=== PATIENT | female | born 1985 | race Caucasian/White ===

== ENCOUNTER → 2019-02-20 09:56 | Outpatient (BNVA) | payer BC, SELFPAY | PROVIDERS: Family Provider Nurse Practitioner; PCP Nurse Practitioner; Visit Provider Nurse Practitioner | DX: Z20.2 Contact with and (suspected) exposure to infections with a predominantly sexual mode of transmission (principal) | CPT/HCPCS: 87491; 87591; 87661 ==

== ENCOUNTER 2019-02-24 15:39 | Emergency (ER) | payer BC, SELFPAY ==
[2019-02-24 16:04] VITALS: BP 117/86; PULSE 100; RESP 17; TEMP 36.7; O2SAT 100; BMI 28.0
--- NOTE | 2019-02-24 16:29 | XRR_ITS ---
PROCEDURE INFORMATION: Exam: XR Left Ankle Exam date and time: 02/24/2019 4:59 PM Age: 33 years old Clinical indication: Pain and injury or trauma; Injury history: Bucked from horse and landed on left ankle, lateral pain; Initial encounter; Sprain or strain; Injury date: 02/23/19 TECHNIQUE: Imaging protocol: XR Left ankle. Views: 3 or more views. COMPARISON: No relevant prior studies available. FINDINGS: Bones/joints: Negative for acute bone abnormality Soft tissues: Normal. XR/XR ankle LT min 3V* [id number] IMPRESSION: No acute findings.
--- NOTE | 2019-02-24 16:41 | ED_ITS ---
HPI - Extremity Problem General: Chief complaint: Extremity Injury, Lower Stated complaint: left ankle pain Time Seen by Provider: 02/24/19 16:41 Source: patient Mode of arrival: ambulatory Limitations: no limitations History of Present Illness: HPI Narrative: pt fell off horse and then horse stepped on foot/ankle; has ambulated since event but states she cannot bear full weight Complaint: joint paint Onset (ago): day(s) Pain Consistency: constant Location: left Quality: burning and constant Radiation: proximal Exacerbating factors: range of motion and weight bearing Associated symptoms: Reports no associated symptoms Review of Systems Musc: Reports: extremity pain (L foot) and joint pain (L ankle) PFSH ED PFSH: Statuses (acute, chronic, etc) shown below reflect problem list status as previously entered and may not be historically accurate Medical History (Updated 02/24/19 @ 17:03 by DONAVON Perera) Endometriosis (Acute) Protein S deficiency (Acute) Surgical History (Updated 02/20/19 @ 11:05 by KACEY Hernandez) H/O: hysterectomy (Acute) Hx of tonsillectomy (Acute) Family History (Updated 02/19/19 @ 10:34 by Nichelle Pace LPN) Unknown Cancer Social History (Updated 02/19/19 @ 10:37 by Nichelle Pace LPN) Smoking and tobacco status: current every day smoker cigarettes Alcohol intake: current Physical Exam Const: COMMON NORMALS: no apparent distress, average body habitus, oriented x3, healthy appearing, alert and well nourished Extremity: LEFT LOWER EXTREMITY: Yes ankle joint (dec ROM; ecchymosis, tenderness to medial ankle/foot; NV intact ) Neuro: COMMON NORMALS: oriented x3 SENSORIUM/ORIENTATION: Yes alert Course Vital Signs: Vital signs: Vital Signs Temperature 98.0 F 02/24/19 16:04 Pulse Rate 100 02/24/19 16:04 Respiratory Rate 17 02/24/19 16:04 Blood Pressure 117/86 02/24/19 16:04 Pulse Oximetry 100 02/24/19 16:04 MDM - Extremity (Nontraumatic) Imaging Data^: L ankle: My impression: NAD Radiologist's impression: NAD Discharge Plan Discharge Patient Disposition: Home, Self-Care Clinical Impression: Contusion of ankle, left Qualifiers: Encounter type: initial encounter Qualified Code(s): S90.02XA - Contusion of left ankle, initial encounter Contusion of foot, left Qualifiers: Encounter type: initial encounter Qualified Code(s): S90.32XA - Contusion of left foot, initial encounter Condition: Stable Prescriptions: No Action lamotrigine [Lamictal] 150 mg tablet 150 mg PO DAILY RF: 0 venlafaxine [Effexor XR] 150 mg capsule,extended release 24hr 150 mg PO QAM RF: 0 pantoprazole [Protonix] 40 mg tablet,delayed release (DR/EC) 40 mg PO DAILY RF: 0 Discharge Orders: Discharge Order (Routine); Ordered 02/24/19 Ordered By: Lyn Noriega Referrals: Natalya Tomlin FNP [Primary Care Provider] - Discharge Activity: Increase activity as tolerated Activity Restrictions/Additional Instructions: Follow up with primary care in 1 week for continued pain. Coding Level of Care Code ED Certified Professional Midwife for Frank Monteiro Exam Problem Focused
--- NOTE | 2019-02-24 16:43 | XRR_ITS ---
PROCEDURE INFORMATION: Exam: XR Left Foot Complete Exam date and time: 02/24/2019 4:59 PM Age: 33 years old Clinical indication: Pain and injury or trauma; Injury history: Bucked from horse landed on ankle, lateral pain; Initial encounter; Sprain or strain; Ankle and foot; Left; Injury date: 02/23/19 TECHNIQUE: Imaging protocol: XR Left foot. Views: 3 or more views. COMPARISON: No relevant prior studies available. FINDINGS: Bones/joints: Negative for acute bone abnormality Soft tissues: Normal. XR/XR foot LT min 3V* [id number] IMPRESSION: No acute findings.
[2019-02-24 17:16] VITALS: BP 118/79; PULSE 91; RESP 18; O2SAT 100
== END 2019-02-24 17:18 | disposition home or self-care (01) ==
LOC: ER 02-25 00:17
PROVIDERS: Emergency Provider Emergency Medicine; Family Provider Nurse Practitioner; PCP Nurse Practitioner
DX: S90.02XA Contusion of left ankle, initial encounter (principal); S90.32XA Contusion of left foot, initial encounter; W55.19XA Other contact with horse, initial encounter; F17.210 Nicotine dependence, cigarettes, uncomplicated
CPT/HCPCS: 73610; 73630; 99281; 99283; E0114

== ENCOUNTER → 2019-03-25 10:10 | Outpatient (BNVA) | payer BC, SELFPAY | PROVIDERS: Family Provider Nurse Practitioner; PCP Nurse Practitioner; Visit Provider Nurse Practitioner | DX: J45.909 Unspecified asthma, uncomplicated (principal); J40 Bronchitis, not specified as acute or chronic; R05 Cough | CPT/HCPCS: 87804 ==

== ENCOUNTER → 2019-06-12 08:31 | Outpatient (BNVA) | payer BC, SELFPAY | PROVIDERS: Family Provider Nurse Practitioner; PCP Nurse Practitioner; Visit Provider Psychiatry & Neurology Psychiatry | DX: F43.12 Post-traumatic stress disorder, chronic (principal); F41.1 Generalized anxiety disorder; F33.2 Major depressive disorder, recurrent severe without psychotic features | CPT/HCPCS: 99204 ==

== ENCOUNTER 2019-06-18 10:56 | Emergency (ER) | payer BC, SELFPAY ==
[2019-06-18 10:57] VITALS: RESP 17
[2019-06-18 11:05] VITALS: BP 126/88; PULSE 97; RESP 16; TEMP 36.4; O2SAT 100; BMI 29.9
--- NOTE | 2019-06-18 11:18 | W.ED.FALL ---
HPI - Fall General: Chief Complaint: Fall Stated Complaint: LOST BALANCE/HIT HEAD Time Seen by Provider: 06/18/19 11:05 Source: patient Mode of arrival: ambulatory Limitations: no limitations History of Present Illness: HPI Narrative: Patient is a 34-year-old female who presents to ED today for evaluation following a fall from a horse that occurred 3 to 4 days ago. Patient states she was thrown from a horse and struck her head. She does report LOC for a few seconds. Patient tells me since the fall she has had a headache, blurry vision, trouble staying awake. She also complains of neck pain, upper back pain, right shoulder pain, right elbow pain, left ankle pain. Patient has been ambulatory and functioning since the fall. She has not had any nausea or vomiting. Patient does not complain of chest pain, shortness of breath, difficulty breathing. She does not have any abdominal pain. MD complaint: fall Onset (ago): day(s) Fall from: other (off horse) Fall witnessed: yes, by bystander Place fall occurred: home Loss of consciousness: Yes Length of LOC: second(s) Prolonged down time: no Symptoms prior to fall: none Context: other (thrown from horse) Location of injury: head, neck and back Location of injury - extremities: Left: ankle and Right: shoulder and elbow Associated symptoms-after fall: Reports headache(s) and neck pain; Denies abdominal pain, chest pain, difficulty walking, hematuria or lightheadedness Review of Systems Const: Denies: fever, chills, body aches, fatigue or malaise Eyes: Reports: blurry vision; Denies: blind spots, photophobia, eye discharge, floaters or seeing flashes ENMT: Denies: throat pain, enlarged tonsils or painful swallowing Card: Denies: chest pain, palpitations, irregular heart rhythm, edema, lightheadedness, syncope, pre-syncope, shortness of breath on exertion, shortness of breath when lying down, leg pain with exertion or bluish discoloration of hands/feet Resp: Denies: shortness of breath, productive cough, non-productive cough, pain on inspiration, coughing up blood or chest congestion GI: Denies: abdominal pain, nausea or vomiting : Denies: flank pain, difficulty urinating, painful urination, urinary frequency, urinary urgency or blood in urine Musc: Reports: neck pain, back pain, extremity pain and joint pain; Denies: extremity swelling, joint swelling or redness Neuro: Reports: headache; Denies: numbness in extremities, weakness in extremities, changes in sensation, lack of coordination, difficulty walking, dizziness, slurred speech or seizure-like activity PFS ED PFSH: Medical History (Updated 06/18/19 @ 12:35 by DONAVON Perera) Endometriosis Protein S deficiency Surgical History (Updated 02/20/19 @ 11:05 by KACEY Hernandez) H/O: hysterectomy Hx of tonsillectomy Family History (Updated 02/19/19 @ 10:34 by Nichelle Pace LPN) Unknown Cancer Social History Smoking and tobacco status: current every day smoker cigarettes Alcohol intake: current Physical Exam Const: COMMON NORMALS: no apparent distress, average body habitus, oriented x3, no limitations, healthy appearing, alert and well nourished ORIENTATION/CONSCIOUSNESS: Yes oriented to person, Yes oriented to place and Yes oriented to time HENMT: COMMON NORMALS: normocephalic, head/scalp atraumatic, hearing grossly normal bilaterally, external ears normal, EAC's normal, TM's normal bilaterally, external nose normal and oropharynx normal HEAD & SCALP: normal to inspection, normocephalic and atraumatic FACE & SINUS: normal facial exam and sinuses nontender NOSE: external nose normal EXTERNAL EAR: Yes external ears normal EXTERNAL AUDITORY CANAL: EAC's normal TYMPANIC MEMBRANE: TM's normal bilaterally Eye: COMMON NORMALS: PERRL, EOMs intact bilaterally and conjunctivae normal GENERAL EYE: normal appearance of both eyes and normal light reflex VISUAL ACUITY: Yes acuity normal PERIORBITAL: periorbital findings normal CONJUNCTIVA: Yes conjunctivae normal PUPIL: Yes PERRL DIRECT OPHTHALMOSCOPY: Yes normal light reflex Neck/C-Spine: OTHER: pt with c-collar on; she does complain of midline neck pain Chest: COMMONS NORMALS: inspection of chest normal and palpation of chest normal Resp: COMMON NORMALS: normal respiratory effort and clear to auscultation bilaterally AUSCULTATION: clear to auscultation bilaterally Cardio: COMMON NORMALS: regular rate and regular rhythm RATE: regular rate RHYTHM: regular rhythm GI: COMMON NORMALS: normal to inspection, nondistended, normoactive bowel sounds, soft to palpation, non-tender, no hepatosplenomegaly and no masses PALPATION: Yes soft and Yes no hepatosplenomegaly : COMMON NORMALS: Yes no CVA tenderness BLADDER/KIDNEY EXAM: Yes no CVA tenderness Back/Pelvis: COMMON NORMALS: no CVA tenderness and straight leg raise negative bilaterally THORACIC SPINE/UPPER BACK: Yes thoracic spinal tenderness (upper-mid thoracic spine; no step offs) LUMBAR SPINE/LOWER BACK: Yes normal to inspection, Yes lumbar ROM normal, No lumbar spinal tenderness and No paraspinal muscle tenderness Extremity: RIGHT UPPER EXTREMITY: Yes shoulder joint (TTP with aduction/flexion past 90 degrees) Right shoulder: Yes neurovascular exam (normal) and Yes elbow joint (bruising/abrasions noted; full but painful ROM) Right elbow: Yes neurovascular exam (normal) LEFT LOWER EXTREMITY: Yes ankle joint (bruising and tenderness to medial ankle; has been ambulatory since fall) Left ankle: Yes neurovascular exam (normal) Neuro: DAVIN COMA SCALE: document GCS findings Milroy coma scale eye opening: Spontaneous Davin coma scale verbal response: Orientated Davin coma scale motor response: Obey commands Milroy coma scale total score: 15 COMMON NORMALS: oriented x3, CN's II-XII intact bilaterally, moves all extremities, no focal motor deficits, no sensory deficits noted and gait normal SENSORIUM/ORIENTATION: Yes alert, Yes oriented to person, Yes oriented to place and Yes oriented to time COORDINATION/BALANCE: [id number] test normal SPEECH: speech normal GAIT: Yes normal gait COORDINATION: [id number] test normal Skin: COMMON NORMALS: no rashes or lesions noted (see extremity for noted abrasions ) GENERAL SKIN EXAM: no rashes or lesions noted (see extremity for noted abrasions ) Course Vital Signs: Vital signs: Vital Signs Temperature 97.6 F 06/18/19 11:05 Pulse Rate 97 06/18/19 11:05 Respiratory Rate 16 06/18/19 11:05 Blood Pressure 126/88 06/18/19 11:05 Pulse Oximetry 100 06/18/19 11:05 MDM - Fall MDM Narrative: Medical decision making narrative: pt with possible T3 fracture on her CT scan; she does have mild pain here so will go ahead and assume it is acute; will have her follow up with PCP in a week Imaging Data^: CT cervical: Radiologist's impression: [place] [address] CT Scan Report Signed Patient: Yani Coley Unit #: [id number] : 1985 Age/Sex: 34 / F ADM Date: 06/18/19 Loc: ER Room/Bed: Attending Dr: Ordering Provider/Ordering MD: Lyn Noriega Date of Service: 06/18/19 Procedure(s): CT cervical spin wo con* [id number] Accession Number(s): [id number] Report Number: [id number] WS: [id number] CT CERVICAL SPINE HISTORY: trauma TECHNIQUE: Contiguous 2.5 mm axial imaging performed through the entire cervical spine. Sagittal and coronal reformats also performed. All CT scans at [facility] use at least one of these dose optimization techniques: automated exposure control; mA and/or kV adjustment per patient size (includes targeted exams where dose is matched to clinical indication); or iterative reconstruction. DLP: 671.28 mGy.cm COMPARISON: None available. Mild straightening and reversal normal cervical lordosis is probably positional. Craniocervical junction is normal. Lateral masses of C1 and C2 are aligned. The odontoid is intact. Vertebral body heights are preserved. Facet joints are normally aligned. No acute disc herniations. No significant central stenosis. Lung apices are clear. CT/CT cervical spin wo con* [id number] IMPRESSION: 1. No acute cervical spine fracture. 2. Slight reversal of the normal cervical lordosis is probably positional or due to spasm. Dictated By: Amaris Urbina DO Signed By: Amaris Urbina DO Signed Date/Time: 06/18/19 1159 DD/ 1155 CT Head: Radiologist's impression: [address] [address] [address] Scan Report Signed Patient: Yani Coley Unit #: [id number] : 1985 Age/Sex: 34 / F ADM Date: 06/18/19 Loc: ER Room/Bed: Attending Dr: Ordering Provider/Ordering MD: Lyn Noriega Date of Service: 06/18/19 Procedure(s): CT head wo con* [id number] Accession Number(s): [id number] Report Number: [id number] WS: [id number] CT HEAD NONCONTRAST HISTORY: trauma; thrown from horse TECHNIQUE: Contiguous axial imaging performed through the brain in 2.5 mm imaging. Bone and soft tissue windows. Sagittal and coronal reformats reviewed. All CT scans at [facility] use at least one of these dose optimization techniques: automated exposure control; mA and/or kV adjustment per patient size (includes targeted exams where dose is matched to clinical indication); or iterative reconstruction. DLP: 864.2 mGy.cm COMPARISON: 03/12/2018 No acute intracranial hemorrhage, midline shift or mass effect. No atrophy or prior infarcts or herniation. Ventricles: Normal size with no hydrocephalus. Paranasal sinuses: As visualized are clear. Mastoid air cells: Well pneumatized. Calvarium and scalp: Skull is intact with no soft tissue edema or swelling. CT/CT head wo con* [id number] IMPRESSION: Negative head CT. Dictated By: Amaris Urbina DO Signed By: Amaris Urbina DO Signed Date/Time: 06/18/19 1202 DD/ 1159 CT thoracic: Radiologist's impression: [place] [address] CT Scan Report Signed Patient: Yani Coley Unit #: [id number] : 1985 Age/Sex: 34 / F ADM Date: 06/18/19 Loc: ER Room/Bed: Attending Dr: Ordering Provider/Ordering MD: Lyn Noriega Date of Service: 06/18/19 Procedure(s): CT thoracic spin wo con* [id number] Accession Number(s): [id number] Report Number: [id number] WS: [id number] CT THORACIC SPINE HISTORY: trauma TECHNIQUE: Contiguous 2.5 mm axial images are reviewed to thoracic spine. Images are reformatted in sagittal and coronal planes. All CT scans at [facility] use at least one of these dose optimization techniques: automated exposure control; mA and/or kV adjustment per patient size (includes targeted exams where dose is matched to clinical indication); or iterative reconstruction. DLP: 1487.19 mGy.cm COMPARISON: None available. Very minimal concave defect superior endplate of T3. Normal posterior alignment of the thoracic vertebral bodies. No retropulsion and facet joints are normally aligned. No acute disc herniations or compromise of the central canal. No significant stenosis. Paravertebral soft tissues are normal. CT/CT thoracic spin wo con* [id number] IMPRESSION: 1. Very mild concave defect involving the superior endplate of T3. Indeterminate for acute fracture. There is no retropulsion and no fracture line is identified. Age indeterminate. Correlate with point tenderness to the T3 level. 2. No disc herniations. Dictated By: Amaris Urbina DO Signed By: Amaris Urbina DO Signed Date/Time: 06/18/19 1208 DD/ 1203 R shoulder XR: Radiologist's impression: [address] [address] XRay Report Signed Patient: Yani Coley Unit #: [id number] : 1985 Age/Sex: 34 / F ADM Date: 06/18/19 Loc: ER Room/Bed: Attending Dr: Ordering Provider/Ordering MD: Lyn Noriega Date of Service: 06/18/19 Procedure(s): XR shoulder RT min 2V* [id number] Accession Number(s): [id number] Report Number: [id number] WS: [id number] RIGHT SHOULDER: 3 VIEW(S) TECHNIQUE: Internal and external rotation with Y view. HISTORY: trauma COMPARISON: None available. No fracture or dislocation or soft tissue abnormality. Glenohumeral and AC joints are unremarkable. XR/XR shoulder RT min 2V* [id number] IMPRESSION: Normal RIGHT shoulder. Dictated By: Amaris Urbina DO Signed By: Amaris Urbina DO Signed Date/Time: 06/18/19 1213 DD/ 1212 L ankle XR: Radiologist's impression: [address] [place] [address] XRay Report Signed Patient: Yani Coley Unit #: [id number] : 1985 Age/Sex: 34 / F ADM Date: 06/18/19 Loc: ER Room/Bed: Attending Dr: Ordering Provider/Ordering MD: Lyn Noriega Date of Service: 06/18/19 Procedure(s): XR ankle LT min 3V* [id number] Accession Number(s): [id number] Report Number: [id number] WS: [id number] LEFT ANKLE: 3 VIEW(S) TECHNIQUE: AP, oblique(s) and lateral. HISTORY: injury; thrown from horse COMPARISON: None available. Normal anatomic alignment with no fracture or dislocation. No joint effusion or widening of the ankle mortise. No significant degenerative changes at the joint spaces. No soft tissue abnormality. XR/XR ankle LT min 3V* [id number] IMPRESSION: Normal LEFT ankle. Dictated By: Amaris Urbina DO Signed By: Amaris Urbina DO Signed Date/Time: 06/18/19 1212 DD/ 1211 R elbow XR: Radiologist's impression: [address] [place] [address] XRay Report Signed Patient: Yani Coley Unit #: [id number] : 1985 Age/Sex: 34 / F ADM Date: 06/18/19 Loc: ER Room/Bed: Attending Dr: Ordering Provider/Ordering MD: Lyn Noriega Date of Service: 06/18/19 Procedure(s): XR elbow RT min 3V* [id number] Accession Number(s): [id number] Report Number: [id number] WS: [id number] RIGHT ELBOW: 3 VIEW(S) TECHNIQUE: AP, oblique and lateral. HISTORY: trauma COMPARISON: None available. No acute fractures or dislocation. No joint effusion. Mild soft tissue edema and injury over the posterior elbow. XR/XR elbow RT min 3V* [id number] IMPRESSION: Soft tissue contusion posterior to the olecranon. No fracture. Dictated By: Amaris Urbina DO Signed By: Amaris Urbina DO Signed Date/Time: 06/18/191210 DD/ 10 Discharge Plan Discharge Patient Disposition: Home, Self-Care Clinical Impression: Fall from horse Qualifiers: Encounter type: initial encounter Qualified Code(s): V80.010A - Animal-rider injured by fall from or being thrown from horse in noncollision accident, initial encounter Concussion Qualifiers: Encounter type: initial encounter Loss of consciousness presence/duration: with LOC of 30 min or less Qualified Code(s): S06.0X1A - Concussion with loss of consciousness of 30 minutes or less, initial encounter Closed T3 fracture Qualifiers: Encounter type: initial encounter Fracture morphology: wedge compression Qualified Code(s): S22.030A - Wedge compression fracture of third thoracic vertebra, initial encounter for closed fracture Condition: Stable Prescriptions: New Tylenol-Codeine #3 300-30 mg tablet 1 tab PO Q6H PRN (Reason: pain) Qty: 20 RF: 0 No Action pantoprazole [Protonix] 40 mg tablet,delayed release (DR/EC) 40 mg PO DAILY RF: 0 albuterol sulfate [ProAir HFA] 90 mcg/actuation HFA aerosol inhaler See Rx Instructions INHALATION .COMPLEX PRN (Reason: shortness of breath or wheezing) Qty: 8.5 RF: 0 lamotrigine [Lamictal] 200 mg tablet 200 mg PO BID Qty: 60 RF: 2 cyclobenzaprine 10 mg Tablet 10 mg PO TID PRN (Reason: Muscle Pain) RF: 0 Effexor XR 150 mg capsule,extended release 24hr 150 mg PO BID RF: 0 Discharge Orders: Discharge Order (Routine); Ordered 06/18/19 Ordered By: Lyn Noriega Referrals: Natalya Tomlin FNP [Primary Care Provider] - Discharge Diet: Usual diet Discharge Activity: Increase activity as tolerated Patient Instructions: Vertebral Compression Fracture (ED), Concussion (ED) Activity Restrictions/Additional Instructions: Follow up with primary care in a week for re-evaluation. Stand Alone Forms: Work/School Release Coding Level of Care Code ED Full Stack Software Developer for Chg Fwd Exam Comprehensive
--- NOTE | 2019-06-18 11:26 | CT_ITS ---
WS: [id number] CT HEAD NONCONTRAST HISTORY: trauma; thrown from horse TECHNIQUE: Contiguous axial imaging performed through the brain in 2.5 mm imaging. Bone and soft tiss ue windows. Sagittal and coronal reformats reviewed. All CT scans at [facility] use at ast one of these dose optimization techniques: automated exposure control; mA and/or kV adjustment pe r patient size (includes targeted exams where dose is matched to clinical indication); or iterative r econstruction. DLP: 864.2 mGy.cm COMPARISON: 03/12/2018 No acute intracranial hemorrhage, midline shift or mass effect. No atrophy or prior infarcts or herniation. Ventricles: Normal size with no hydrocephalus. Paranasal sinuses: As visualized are clear. Mastoid air cells: Well pneumatized. Calvarium and scalp: Skull is intact with no soft tissue edema or swelling. CT/CT head wo con* [id number] IMPRESSION: Negative head CT.
--- NOTE | 2019-06-18 11:26 | XR_ITS ---
WS: [id number] RIGHT SHOULDER: 3 VIEW(S) TECHNIQUE: Internal and external rotation with Y view. HISTORY: trauma COMPARISON: None available. No fracture or dislocation or soft tissue abnormality. Glenohumeral and AC joints are unremarkable. XR/XR shoulder RT min 2V* [id number] IMPRESSION: Normal RIGHT shoulder.
--- NOTE | 2019-06-18 11:26 | XR_ITS ---
WS: [id number] RIGHT ELBOW: 3 VIEW(S) TECHNIQUE: AP, oblique and lateral. HISTORY: trauma COMPARISON: None available. No acute fractures or dislocation. No joint effusion. Mild soft tissue edema and injury over the posterior elbow. XR/XR elbow RT min 3V* [id number] IMPRESSION: Soft tissue contusion posterior to the olecranon. No fracture.
--- NOTE | 2019-06-18 11:26 | CT_ITS ---
WS: [id number] CT CERVICAL SPINE HISTORY: trauma TECHNIQUE: Contiguous 2.5 mm axial imaging performed through the entire cervical spine. Sagittal and coronal reformats also performed. All CT scans at [facility] use at least one of these do se optimization techniques: automated exposure control; mA and/or kV adjustment per patient size (inc ludes targeted exams where dose is matched to clinical indication); or iterative reconstruction. DLP: 671.28 mGy.cm COMPARISON: None available. Mild straightening and reversal normal cervical lordosis is probably positional. Craniocervical junct ion is normal. Lateral masses of C1 and C2 are aligned. The odontoid is intact. Vertebral body height s are preserved. Facet joints are normally aligned. No acute disc herniations. No significant central stenosis. Lung apices are clear. CT/CT cervical spin wo con* [id number] IMPRESSION: 1. No acute cervical spine fracture. 2. Slight reversal of the normal cervical lordosis is probably positional or d ue to spasm.
--- NOTE | 2019-06-18 11:26 | CT_ITS ---
WS: [id number] CT THORACIC SPINE HISTORY: trauma TECHNIQUE: Contiguous 2.5 mm axial images are reviewed to thoracic spine. Images are reformatted in s agittal and coronal planes. All CT scans at [facility] use at least one of these dose opt imization techniques: automated exposure control; mA and/or kV adjustment per patient size (includes targeted exams where dose is matched to clinical indication); or iterative reconstruction. DLP: 1487.19 mGy.cm COMPARISON: None available. Very minimal concave defect superior endplate of T3. Normal posterior alignment of the thoracic verte bral bodies. No retropulsion and facet joints are normally aligned. No acute disc herniations or comp romise of the central canal. No significant stenosis. Paravertebral soft tissues are normal. CT/CT thoracic spin wo con* [id number] IMPRESSION: 1. Very mild concave defect involving the superior endplate of T3. Indetermina te for acute fracture. There is no retropulsion and no fracture line is identif ied. Age indeterminate. Correlate with point tenderness to the T3 level. 2. No disc herniations.
--- NOTE | 2019-06-18 11:26 | XR_ITS ---
WS: [id number] LEFT ANKLE: 3 VIEW(S) TECHNIQUE: AP, oblique(s) and lateral. HISTORY: injury; thrown from horse COMPARISON: None available. Normal anatomic alignment with no fracture or dislocation. No joint effusion or widening of the ankle mortise. No significant degenerative changes at the joint spaces. No soft tissue abnormality. XR/XR ankle LT min 3V* [id number] IMPRESSION: Normal LEFT ankle.
--- NOTE | 2019-06-18 12:06 | PC.NURSE ---
PATIENT TAKEN TO CT
[2019-06-18 13:03] VITALS: BP 124/82; PULSE 92; RESP 18; O2SAT 100
== END 2019-06-18 13:10 | disposition home or self-care (01) ==
PROVIDERS: Emergency Provider Physician Assistant; Family Provider Nurse Practitioner; PCP Nurse Practitioner
DX: S06.0X1A Concussion with loss of consciousness of 30 minutes or less, initial encounter (principal); S22.030A Wedge compression fracture of third thoracic vertebra, initial encounter for closed fracture; V80.010A Animal-rider injured by fall from or being thrown from horse in noncollision accident, initial encounter; F17.210 Nicotine dependence, cigarettes, uncomplicated
CPT/HCPCS: 12345; 70450; 72125; 72128; 73030; 73080; 73610; 99282; 99283

== ENCOUNTER 2019-07-10 12:40 | Outpatient (CLI) | payer BC, SELFPAY ==
--- NOTE | 2019-07-10 13:00 | MR_ITS ---
WS: [id number] MRI THORACIC SPINE WITHOUT CONTRAST TECHNIQUE: Sagittal T1, T2 and STIR imaging. Axial T2 imaging. Noncontrast imaging obtained. CLINICAL INFORMATION: back pain COMPARISON: CT June 18, 2019 FINDINGS: Normal thoracic alignment. No acute compression. Mild concave compression deformity T3 superior endpl ate is chronic. No edema. No high-grade central canal stenosis. Incidental hemangioma T2. No signific ant disc protrusions or extrusions. Disc space heights and vertebral body heights are well preserved. Mild bony foraminal narrowing right T9-T10, right T10-T11. Mild facet arthropathy lower thoracic spin e. Cord signal is normal. Adrenal glands are normal. Small esophageal hiatal hernia. Normal caliber t horacic aorta. MR/MR thoracic spin wo con* [id number] IMPRESSION: 1. Normal thoracic alignment. No acute compression. No high-grade central agustin l stenosis. 2. Mild concave compression deformity T3 vertebral body is chronic. No edema. 3. No significant disc protrusions or extrusions. 4. Mild bony right T9-10 and right T10-11 foraminal narrowing. 5. Mild facet arthropathy lower thoracic spine. 6. Small esophageal hiatal hernia.
== END 2019-07-10 12:41 | disposition home or self-care (01) ==
LOC: RADSHAW 12:45
PROVIDERS: PCP Nurse Practitioner; Visit Provider Registered Nurse
DX: M54.9 Dorsalgia, unspecified (principal); S22.030A Wedge compression fracture of third thoracic vertebra, initial encounter for closed fracture; M47.814 Spondylosis without myelopathy or radiculopathy, thoracic region; K44.9 Diaphragmatic hernia without obstruction or gangrene; X58.XXXA Exposure to other specified factors, initial encounter
CPT/HCPCS: 72146

== ENCOUNTER → 2019-07-18 10:57 | Outpatient (BNVA) | payer BC, SELFPAY | PROVIDERS: PCP Nurse Practitioner; Referring Provider Registered Nurse; Visit Provider Orthopaedic Surgery | DX: M25.471 Effusion, right ankle (principal); M25.571 Pain in right ankle and joints of right foot | CPT/HCPCS: 73610 ==

== ENCOUNTER 2019-08-17 16:02 | Emergency (ER) | payer SELFPAY ==
[2019-08-17 16:07] VITALS: BP 127/90; PULSE 80; RESP 18; TEMP 37.1; BMI 29.7
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
[2019-08-17] MEDS: HYDROcodone-acetaminophen 5-325 mg Tablet 2 TAB PO (17:05)
[2019-08-17 17:42] VITALS: BP 123/85; PULSE 89; RESP 16; O2SAT 99
== END 2019-08-17 17:42 | disposition home or self-care (01) ==
PROVIDERS: Emergency Provider Family Medicine; PCP Nurse Practitioner
DX: S32.131A Minimally displaced Zone III fracture of sacrum, initial encounter for closed fracture (principal); S00.83XA Contusion of other part of head, initial encounter; S52.592A Other fractures of lower end of left radius, initial encounter for closed fracture; Y04.2XXA Assault by strike against or bumped into by another person, initial encounter; F17.210 Nicotine dependence, cigarettes, uncomplicated
CPT/HCPCS: 12345; 29125; 71111; 72220; 73110; 73130; 99281; 99283

== ENCOUNTER 2019-08-28 16:03 | Outpatient (CLI) | payer SELFPAY | END 2019-08-28 16:04 | disposition home or self-care (01) | LOC: SPT 16:04 | PROVIDERS: PCP Nurse Practitioner; Visit Provider Orthopaedic Surgery | DX: Z46.89 Encounter for fitting and adjustment of other specified devices (principal); S52.532D Colles' fracture of left radius, subsequent encounter for closed fracture with routine healing; X58.XXXD Exposure to other specified factors, subsequent encounter | CPT/HCPCS: 97760; L3982 ==

== ENCOUNTER → 2019-09-25 15:05 | Outpatient (BNVA) | payer SELFPAY | PROVIDERS: PCP Nurse Practitioner; Visit Provider Orthopaedic Surgery | DX: S52.532A Colles' fracture of left radius, initial encounter for closed fracture (principal) | CPT/HCPCS: 73110 ==

== ENCOUNTER → 2019-10-22 11:30 | Outpatient (BNVA) | payer SELFPAY | PROVIDERS: PCP Nurse Practitioner; Visit Provider Orthopaedic Surgery | DX: S52.532A Colles' fracture of left radius, initial encounter for closed fracture (principal); X58.XXXA Exposure to other specified factors, initial encounter | CPT/HCPCS: 73110 ==

== ENCOUNTER 2019-10-28 12:43 | Emergency (ER) | payer SELFPAY ==
[2019-10-28 12:51] VITALS: BP 105/77; PULSE 99; RESP 16; TEMP 36.1; O2SAT 99; BMI 29.7
--- NOTE | 2019-10-28 13:05 | XRR_ITS ---
PROCEDURE INFORMATION: Exam: XR Chest, 1 View Exam date and time: 10/28/2019 1:18 PM Age: 34 years old Clinical indication: Cough and shortness of breath; Patient HX: Cough, shortness of breath, fever TECHNIQUE: Imaging protocol: XR of the chest Views: Frontal portable upright view of the chest. COMPARISON: CR XR ribs BI mn 4V w CXR1V [id number] 08/17/2019 4:37 PM FINDINGS: Lungs: The lungs are clear bilaterally. The pulmonary vasculature is normal. Pleural space: No pleural effusion. No pneumothorax. Heart/Mediastinum: The heart is normal in size and contour. Mediastinum: Stable. Bones/joints: Stable. XR/XR chest 1V portable [id number] IMPRESSION: No acute cardiopulmonary abnormality identified.
--- NOTE | 2019-10-28 13:06 | ECG_ITS ---
[facility] Test Date: 2019-10-28 Pat Name: Yani Coley Department: Room: Gender: Female Display Associate: : 1985 Requested By: Amparo Cade Order Number: [id number] Lemus MD: Adriana Esparza M.D. Measurements Intervals [place] Rate: 68 P: 67 MS: 143 QRS: 80 QRSD: 90 T: 69 QT: 379 QTc: 403 Interpretive Statements SINUS RHYTHM No previous ECG available for comparison Electronically Signed On 10-28-2019 17:00:54 CDT by Adriana Esparza M.D. [email or web address]
--- NOTE | 2019-10-28 13:17 | W.ED.SOB ---
HPI - SOB/Dyspnea General: Chief Complaint: Shortness of Breath/Dyspnea Stated Complaint: fever/ wheezing/ nose stuffed and runny Time Seen by Provider: 10/28/19 12:57 Source: patient Mode of arrival: ambulatory Limitations: no limitations History of Present Illness: HPI Narrative: Yani is a nice 34-year-old female who comes in stating she has a cough that is productive. She says she is not looked at the sputum secondary to it does not happen at times she can see it. She is had a subjective fever, chills and generalized malaise. She is she has a runny nose and congestion. She does not believe she is been around anyone that has covert infection but states that she feels like she has the flu. She denies any chest pain or hemoptysis. Patient does have protein as deficiency but denies any leg pain or swelling and she is not on anticoagulants. Patient otherwise denies any complaints or concerns. Associated symptoms: Reports fever(s); Deny abdominal pain, chest congestion, chest pain, diaphoresis, dizziness, extremity pain, hemoptysis, lightheadedness, nausea, orthopnea, palpitations, syncope or vomiting Review of Systems Const: Reports: fever(s), chills, body aches, fatigue and malaise; Denies: diaphoresis Eyes: Denies: change in vision, blurry vision, photophobia, eye discomfort, eye discharge or eye redness ENMT: Denies: throat pain, odynophagia, hoarseness, swelling of lips/tongue, ear or mastoid pain, ear discharge, change in hearing or nasal discharge Card: Denies: chest pain, palpitations, irregular heart rhythm, edema, lightheadedness, syncope, pre-syncope, dyspnea on exertion or orthopnea Resp: Reports: productive cough and wheezing; Denies: dyspnea, non-productive cough, hemoptysis or chest congestion GI: Denies: abdominal pain, nausea, vomiting, hematemesis, coffee ground emesis, heartburn, diarrhea, constipation, GI cramping, hematochezia or melena : Denies: flank pain, dysuria, urinary frequency, urinary urgency or hematuria Musc: Denies: neck pain, back pain, extremity pain, extremity swelling, joint pain, joint swelling, joint redness, joint warmth or joint stiffness Skin/Breast: Denies: rash, pruritus, erythema or skin tenderness Neuro: Denies: headache(s), numbness in extremities, weakness in extremities, sensory changes, lack of coordination, difficulty walking, dizziness, vertigo, confusion, Slurred speech present or seizure-like activity Patel/Lymph: Denies: easy bruising, easy bleeding, petechiae, purpura or enlarged lymph nodes All/Imm: Denies: urticaria, throat swelling, tongue swelling, facial swelling or acute wheezing PFSH ED PFSH: Medical History Endometriosis Protein S deficiency Surgical History H/O: hysterectomy Hx of tonsillectomy Family History Unknown Cancer Social History Smoking and tobacco status: current every day smoker cigarettes Alcohol intake: current Physical Exam Const: COMMON NORMALS: no acute distress, patient oriented x3, no limitations, healthy appearing and well nourished GENERAL APPEARANCE: cooperative, well kempt and well developed HENMT: COMMON NORMALS: normocephalic, atraumatic, external ears normal, EAC's normal and Normal external nose present HEAD & SCALP: normal to inspection, normocephalic and atraumatic FACE & SINUS: normal facial exam and face symmetric NOSE: Normal external nose present and Normal nares present EXTERNAL EAR: Yes external ears normal EXTERNAL AUDITORY CANAL: EAC's normal MOUTH: Normal oral and palatal mucosa present, lip normal and tongue normal Eye: COMMON NORMALS: Equal, round and reactive pupils present and conjunctivae normal GENERAL EYE: appearance normal, both eyes and all related structures ALIGNMENT: Yes alignment normal PERIORBITAL: periorbital findings normal EYELID: eyelids normal CONJUNCTIVA: Yes conjunctivae normal SCLERA: sclerae normal PUPIL: Yes Equal, round and reactive pupils present Neck/C-Spine: COMMON NORMALS: full ROM, no lymphadenopathy, supple, no meningeal signs and no JVD GENERAL: Yes normal visual inspection and Yes trachea midline Chest: COMMONS NORMALS: normal inspection of the chest and normal palpation of entire chest wall Resp: COMMON NORMALS: normal respiratory effort, No retractions, No use of accessory muscles and clear to auscultation bilaterally EFFORT & INSPECTION: Yes able to speak in complete sentences and Yes symmetric chest movement AUSCULTATION: clear to auscultation bilaterally, no crackles, no rales, rhonchi and wheezes Cardio: COMMON NORMALS: no JVD, regular rate, regular rhythm, S1 normal heart sound present and S2 normal heart sound present RATE: regular rate RHYTHM: regular rhythm HEART SOUNDS: S1 normal heart sound present, S2 normal heart sound present, no click, no gallops, no murmurs, no rubs and abnormal split S2 GI: COMMON NORMALS: Soft to palpation and No hepatosplenomegaly present PALPATION: Yes Soft to palpation, No Tenderness to palpation present (GI), No Guarding due to palpation present (GI), No Rigid due to palpation, Yes No hepatosplenomegaly present, No Hernia present, No Palpable mass present and No Pulsatile mass present : COMMON NORMALS: Yes no CVA tenderness BLADDER/KIDNEY EXAM: Yes no CVA tenderness EXTERNAL FEMALE EXAM: No Hernia present Back/Pelvis: COMMON NORMALS: no CVA tenderness, thoracic and lumbar spine normal to inspection, no thoracic nor lumbar tenderness and thoraco-lumbar ROM normal Extremity: COMMON NORMALS: normal to inspection, full ROM, capillary refill normal, no joint enlargement, no clubbing, cyanosis or edema and no calf tenderness Neuro: COMMON NORMALS: patient oriented x3, CN's II-XII intact bilaterally, moves all extremities, no focal motor deficits and no sensory deficits noted MENINGEAL SIGNS: Yes no meningeal signs SPEECH: speech normal Psych: COMMON NORMALS: mental status grossly normal, Normal thought process present, cooperative, normal affect, speech normal and activity/motor behavior normal APPEARANCE: Yes well kempt SPEECH: Yes normal speech THOUGHT PROCESS: Normal thought process present Skin: COMMON NORMALS: no rashes or lesions noted, turgor normal, no jaundice, no petechiae and no mottling GENERAL SKIN EXAM: no rashes or lesions noted and turgor normal Course Vital Signs: Vital signs: Vital Signs Temperature 96.9 F L 10/28/19 12:51 Pulse Rate 65 10/28/19 16:22 Respiratory Rate 18 10/28/19 16:22 Blood Pressure 98/55 10/28/19 16:22 Pulse Oximetry 97 10/28/19 16:22 MDM - SOB/Dyspnea MDM Narrative: Medical decision making narrative: Patient is feeling better and is ready to go home. Her CT is negative for any signs of interstitial lung infiltrates or PE. I am going to send another covert test on the patient that will be more sensitive. She agrees to return should her symptoms change or worsen. Currently patient is breathing much better she is feeling better and she is ready to be discharged. Lab Data: Attestation: I reviewed the patient's lab results. Labs: Lab Results 10/28/19 10/28/19 10/28/19 Range/Units 13:00 13:00 13:00 WBC 3.8 L (4.0-10.0) 10^3/ uL RBC 3.71 L (4.1-5.3) 10^6/u L Hgb 11.7 (11.5-15.3) g/dL Hct 34.3 L (37.0-47.0) % MCV 92.5 (81-99) fL MCH 31.5 (28.0-34.0) pg MCHC 34.1 (30.0-36.0) g/dL RDW 12.4 (12.1-15.1) % Plt Count 169 (130-400) 10^3/c mm MPV 11.6 H (7.4-10.4) fL Neut % (Auto) 41.3 % Lymph % (Auto) 43.8 % [place] % (Auto) 11.5 % Eos % (Auto) 2.6 % Baso % (Auto) 0.5 % Neut # (Auto) 1.59 L (1.8-7.7) 10^3/u L Lymph # (Auto) 1.7 (0.8-4.8) 10^3/u L [place] # (Auto) 0.4 (0.2-0.9) 10^3/u L Eos # (Auto) 0.1 (0.0-0.8) 10^3/u L Baso # (Auto) 0.0 (0.0-0.1) 10^3/u L Nucleated RBC % (a uto) 0 % Nucleated RBCs # 0.0 /100WBC D-Dimer (0-0.59) ug/mIFE U Sodium 141 (136-145) mmol/L Potassium 4.3 (3.5-5.1) mmol/L Chloride 107 (98-107) mmol/L Carbon Dioxide 24 (22-29) mmol/L Anion Gap 14.3 (5-19) BUN 12 (6-20) mg/dL Creatinine 0.8 (0.5-0.9) mg/dL GFR Calculation 81.6 L (90-130) mL/min Glucose 93 (65-115) mg/dL Calculated Osmolal ity 288 (285-295) mOsm/k g Lactic Acid 0.7 (0.5-2.2) mmol/L Calcium 9.4 (8.5-10.5) mg/dL Magnesium 2.2 (1.7-2.3) mg/dL Total Bilirubin 0.4 (0.15-1.2) mg/dL AST 23 (0-32) U/L ALT 14 (0-33) U/L Alkaline Phosphata se 72 (35-105) IU/L Total Protein 7.2 (6.6-8.7) g/dL Albumin 4.3 (3.5-5.2) g/dL Globulin 2.9 (1.3-4.6) g/dL HCG, Qual (Negative) Urine Color (Yellow) Urine Appearance (CLEAR) Urine pH (5-7) Ur Specific Gravit y (1.005-1.030) Urine Protein (Negative) Urine Glucose (UA) (Normal) Urine Ketones (Negative) Urine Blood (Negative) Urine Nitrate (Negative) Urine Bilirubin (NEGATIVE) Urine Urobilinogen (Negative) mg/dL Ur Leukocyte Karie ase (Negative) Influenza Type A A g (Negative) Influenza Type B A g (Negative) SARS-CoV-2 Ag (Rap id) (Negative) 10/28/19 10/28/19 10/28/19 Range/Units 13:00 13:00 13:10 WBC (4.0-10.0) 10^3/ uL RBC (4.1-5.3) 10^6/u L Hgb (11.5-15.3) g/dL Hct (37.0-47.0) % MCV (81-99) fL MCH (28.0-34.0) pg MCHC (30.0-36.0) g/dL RDW (12.1-15.1) % Plt Count (130-400) 10^3/c mm MPV (7.4-10.4) fL Neut % (Auto) % Lymph % (Auto) % [place] % (Auto) % Eos % (Auto) % Baso % (Auto) % Neut # (Auto) (1.8-7.7) 10^3/u L Lymph # (Auto) (0.8-4.8) 10^3/u L [place] # (Auto) (0.2-0.9) 10^3/u L Eos # (Auto) (0.0-0.8) 10^3/u L Baso # (Auto) (0.0-0.1) 10^3/u L Nucleated RBC % (a uto) % Nucleated RBCs # /100WBC D-Dimer 0.65 H (0-0.59) ug/mIFE U Sodium (136-145) mmol/L Potassium (3.5-5.1) mmol/L Chloride (98-107) mmol/L Carbon Dioxide (22-29) mmol/L Anion Gap (5-19) BUN (6-20) mg/dL Creatinine (0.5-0.9) mg/dL GFR Calculation (90-130) mL/min Glucose (65-115) mg/dL Calculated Osmolal ity (285-295) mOsm/k g Lactic Acid (0.5-2.2) mmol/L Calcium (8.5-10.5) mg/dL Magnesium (1.7-2.3) mg/dL Total Bilirubin (0.15-1.2) mg/dL AST (0-32) U/L ALT (0-33) U/L Alkaline Phosphata se (35-105) IU/L Total Protein (6.6-8.7) g/dL Albumin (3.5-5.2) g/dL Globulin (1.3-4.6) g/dL HCG, Qual Negative (Negative) Urine Color (Yellow) Urine Appearance (CLEAR) Urine pH (5-7) Ur Specific Gravit y (1.005-1.030) Urine Protein (Negative) Urine Glucose (UA) (Normal) Urine Ketones (Negative) Urine Blood (Negative) Urine Nitrate (Negative) Urine Bilirubin (NEGATIVE) Urine Urobilinogen (Negative) mg/dL Ur Leukocyte Karie ase (Negative) Influenza Type A A g (Negative) Influenza Type B A g (Negative) SARS-CoV-2 Ag (Rap id) Negative (Negative) 10/28/19 10/28/19 Range/Units 13:10 13:25 WBC (4.0-10.0) 10^3/ uL RBC (4.1-5.3) 10^6/u L Hgb (11.5-15.3) g/dL Hct (37.0-47.0) % MCV (81-99) fL MCH (28.0-34.0) pg MCHC (30.0-36.0) g/dL RDW (12.1-15.1) % Plt Count (130-400) 10^3/c mm MPV (7.4-10.4) fL Neut % (Auto) % Lymph % (Auto) % [place] % (Auto) % Eos % (Auto) % Baso % (Auto) % Neut # (Auto) (1.8-7.7) 10^3/u L Lymph # (Auto) (0.8-4.8) 10^3/u L [place] # (Auto) (0.2-0.9) 10^3/u L Eos # (Auto) (0.0-0.8) 10^3/u L Baso # (Auto) (0.0-0.1) 10^3/u L Nucleated RBC % (a uto) % Nucleated RBCs # /100WBC D-Dimer (0-0.59) ug/mIFE U Sodium (136-145) mmol/L Potassium (3.5-5.1) mmol/L Chloride (98-107) mmol/L Carbon Dioxide (22-29) mmol/L Anion Gap (5-19) BUN (6-20) mg/dL Creatinine (0.5-0.9) mg/dL GFR Calculation (90-130) mL/min Glucose (65-115) mg/dL Calculated Osmolal ity (285-295) mOsm/k g Lactic Acid (0.5-2.2) mmol/L Calcium (8.5-10.5) mg/dL Magnesium (1.7-2.3) mg/dL Total Bilirubin (0.15-1.2) mg/dL AST (0-32) U/L ALT (0-33) U/L Alkaline Phosphata se (35-105) IU/L Total Protein (6.6-8.7) g/dL Albumin (3.5-5.2) g/dL Globulin (1.3-4.6) g/dL HCG, Qual (Negative) Urine Color Yellow (Yellow) Urine Appearance Clear (CLEAR) Urine pH 7 (5-7) Ur Specific Gravit y 1.010 (1.005-1.030) Urine Protein Neg (Negative) Urine Glucose (UA) Norm (Normal) Urine Ketones Negative (Negative) Urine Blood Neg (Negative) Urine Nitrate Negative (Negative) Urine Bilirubin Neg (NEGATIVE) Urine Urobilinogen Neg (Negative) mg/dL Ur Leukocyte Karie ase Negative (Negative) Influenza Type A A g Negative (Negative) Influenza Type B A g Negative (Negative) SARS-CoV-2 Ag (Rap id) (Negative) Imaging Data^: CXR: Attestation: I personally reviewed and interpreted this imaging study as follows: My impression: No acute cardiopulmonary findings. CTA chest: My impression: Verbal report from radiologist -no PEs or infiltrates. Pulmonary nodules present. EKG Data^: EKG 1: Attestation: I personally reviewed and interpreted this EKG as follows: EKG Interpretation Date: 10/28/19 EKG interpretation time: 13:39 Interpretation: Normal sinus rhythm at 68 beats a minute, T wave inversion in V2, otherwise nonspecific ST-T wave changes. No blocks, normal intervals. Discharge Plan Discharge Patient Disposition: Home Clinical Impression: Bronchitis, Pulmonary nodules Condition: Stable Prescriptions: New prednisone 10 mg tablet 20 mg PO BID 5 Days Qty: 10 RF: 0 Zithromax Z-Gurjit 250 mg tablet See Rx Instructions .ROUTE .COMPLEX Qty: 6 RF: 0 No Action lamotrigine [Lamictal] 200 mg tablet 200 mg PO BID Qty: 60 RF: 2 ibuprofen 200 mg Tablet 800 mg PO PRN RF: 0 ProAir HFA 90 mcg/actuation HFA aerosol inhaler 1 - 2 puff INHALATION QID PRN (Reason: shortness of breath or wheezing) RF: 0 Discharge Orders: Discharge Order (Routine); Ordered 10/28/19 Ordered By: Amparo Carbajal Referrals: Natalya Tomlin FNP [Primary Care Provider] - 1-3 days Discharge Diet: Advance as tolerated Discharge Activity: Increase activity as tolerated Patient Instructions: Acute Bronchitis (ED) Activity Restrictions/Additional Instructions: Please return to the ER immediately for any of the signs or symptoms listed on your discharge instruction sheets, worsening/changing of your symptoms, you are not getting better as quickly as expected, or for ANY other cause or concerns. A repeat more sensitive test for the COVID virus has been sent. Keep yourself quarantined and at home from others until we call you with the results. Return to ER for increased shortness of breath, uncontrolled fever, vomiting, or for any other cause for concern. Be certain to follow-up with your primary care provider or the physician of your choice for the nodules found in your lungs. Coding Level of Care Code ED Soaping Department Supervisor for Alexandriag Fwd Exam Comprehensive
[2019-10-28 13:19] VITALS: PULSE 92; RESP 18; O2SAT 97
[2019-10-28 13:25] LABS: Basophils % 0.5 %; Eosinophils # 0.1 10^3/uL (0.0-0.8); Eosinophils % 2.6 %; Hematocrit 34.3 % (37.0-47.0); Hemoglobin 11.7 g/dL (11.5-15.3); Lymphocytes # 1.7 10^3/uL (0.8-4.8); Lymphocytes % 43.8 %; Mean Corpuscular HGB Conc 34.1 g/dL (30.0-36.0); Mean Corpuscular Hemoglobin 31.5 pg (28.0-34.0); Mean Corpuscular Volume 92.5 fL (81-99); Mean Platelet Volume 11.6 fL (7.4-10.4); Monocytes # 0.4 10^3/uL (0.2-0.9); Monocytes % 11.5 %; Neutrophils # 1.59 10^3/uL (1.8-7.7); Neutrophils % 41.3 %; Nucleated Red Blood Cells % 0 %; Platelet Count 169 10^3/cmm (130-400); Red Blood Count 3.71 10^6/uL (4.1-5.3); Red Cell Distribution Width 12.4 % (12.1-15.1); White Blood Count 3.8 10^3/uL (4.0-10.0)
[2019-10-28 13:38] LABS: HCG, Serum Qual Negative (Negative)
[2019-10-28 13:39] LABS: Lactic Sepsis W/Reflex 0.7 mmol/L (0.5-2.2)
[2019-10-28 13:42] LABS: SARS Covid-2 Antigen Negative (Negative)
[2019-10-28 13:46] LABS: Alanine Aminotransferase 14 U/L (0-33); Albumin Level 4.3 g/dL (3.5-5.2); Alkaline Phosphatase 72 IU/L (35-105); Anion Gap 14.3 (5-19); Aspartate Amino Transferase 23 U/L (0-32); Blood Urea Nitrogen 12 mg/dL (6-20); Calcium 9.4 mg/dL (8.5-10.5); Carbon Dioxide 24 mmol/L (22-29); Chloride 107 mmol/L (98-107); Globulin 2.9 g/dL (1.3-4.6); Glomerular Filtration Rate 81.6 mL/min (90-130); Glucose 93 mg/dL (65-115); Magnesium 2.2 mg/dL (1.7-2.3); Osmolality Calculated 288 mOsm/kg (285-295); Potassium 4.3 mmol/L (3.5-5.1); Sodium 141 mmol/L (136-145); Total Bilirubin 0.4 mg/dL (0.15-1.2); Total Protein 7.2 g/dL (6.6-8.7)
[2019-10-28 13:55] LABS: Add Urine Microscopic? NO
[2019-10-28 14:06] LABS: Bilirubin Urine Neg (NEGATIVE); Blood Urine Neg (Negative); Glucose Urine UA Norm (Normal); Ketones Urine Negative (Negative); Leukocyte Esterase Urine Negative (Negative); Nitrate Urine Negative (Negative); Protein Urine Neg (Negative); Urine Appearance Clear (CLEAR); Urine Color Yellow (Yellow); Urobilinogen Urine Neg (Negative); pH Urine 7 (5-7)
[2019-10-28 14:15] LABS: Influenza A by IFA Negative (Negative); Influenza B by IFA Negative (Negative)
[2019-10-28] MEDS: dexamethasone 10 mg/mL INJ IVP (14:15)
[2019-10-28] MEDS: sodium chloride 0.9% 1,000 ML 999 ML IV ×2 (14:16→14:57)
[2019-10-28 14:25] LABS: D Dimer 0.65 ug/mIFEU (0-0.59)
--- NOTE | 2019-10-28 14:31 | CT_ITS ---
WS: [id number] CTA OF THE CHEST WITH PULMONARY EMBOLISM PROTOCOL TECHNIQUE: High-resolution contrast enhanced CTA of the chest with coronal and sagittal reformatted i mages with pulmonary embolism protocol. MIP images are also reviewed. CLINICAL INFORMATION: Dyspnea, chest pain, positive d-dimer COMPARISON: None. DLP: 579.[address] scans at [facility] use at least one of these dose optimization techniques: automat ed exposure control; mA and/or kV adjustment per patient size (includes targeted exams where dose is matched to clinical indication); or iterative reconstruction. FINDINGS: Proximal main pulmonary arteries are normal. Normal segmental and subsegmental pulmonary arteries. No evidence for pulmonary embolus. Normal caliber thoracic aorta. No mediastinal or hilar lymphadenopat hy. No axillary lymphadenopathy. No acute pulmonary infiltrates. No pleural fluid. Slight subsegmenta l atelectasis in the lung bases. Small subcentimeter noncalcified nodule in the left upper lobe poste riorly, subpleural left lower lobe, and left lower lobe along the fissure measuring 3 to 4 mm. Small right adrenal adenoma measuring 12 mm. Left adrenal gland is normal. Small esophageal hiatal he rnia. Chronic left sixth rib fracture with callus formation CT/CT angio chest PE protcl [id number] IMPRESSION: 1. No evidence of pulmonary embolus. 2. No acute pulmonary infiltrates. 3. A few tiny noncalcified pulmonary nodules measuring 3 to 4 mm. Recommend 12 month follow-up. 4. Incidental small right adrenal adenoma 5. No other significant findings. Notified Amparo Carbajal at 10/28/2019 4:44 PM.
[2019-10-28 14:36] VITALS: BP 99/58; PULSE 67; RESP 18; O2SAT 96
[2019-10-28 16:22] VITALS: BP 98/55; PULSE 65; RESP 18; O2SAT 97
--- NOTE | 2019-10-28 16:24 | PC.NURSE ---
Gone to Radiology
[2019-10-28] MEDS: iohexol 350 mg/mL 100 mL Btl IV (16:30)
[2019-10-28] MEDS: predniSONE 20 mg Tablet 60 MG PO (16:56)
[2019-10-28 17:07] VITALS: BP 95/57; PULSE 76; RESP 18; TEMP 37.2; O2SAT 96
[2019-10-30 18:23] LABS: Quest SARS-CoV-2 RNA NOT DETECTED (NOT DETECTED)
--- NOTE | 2019-10-31 08:24 | PC.NURSE ---
Pt notified of negative COVID
== END 2019-10-28 17:09 | disposition home or self-care (01) ==
PROVIDERS: Emergency Provider Emergency Medicine; PCP Nurse Practitioner
DX: J40 Bronchitis, not specified as acute or chronic (principal); R91.1 Solitary pulmonary nodule; F17.210 Nicotine dependence, cigarettes, uncomplicated
CPT/HCPCS: 12345; 71045; 71275; 80053; 81003; 83605; 83735; 84703; 85025; 85378; 87040; 87426; 87635; 87804; 93005; 96361; 96374; 96375; 99284; J0131; J1100; J7030; J7512; Q9967

== ENCOUNTER 2019-12-15 12:22 | Outpatient (CLI) | payer SELFPAY ==
--- NOTE | 2019-12-15 12:30 | MR_ITS ---
WS: [id number] MRI OF THE LEFT WRIST WITHOUT AND WITH INTRA-ARTICULAR GADOLINIUM INDICATION: Persistent left wrist pain. Evaluate for ligamentous injury post coital fracture. TECHNIQUE: MRI wrist arthrogram without and with gadolinium enhancement. Coronal T1, coronal PD, jose nal STIR, coronal 3-D FSPGR, sagittal T1, axial T1 and coronal T1 sagittal T1 post arthrogram imaging . FINDINGS: Healing fracture involving the distal radial metaphysis with persistent visualized fracture line and edema. Callus formation is visualized. Fracture lines appear to extend to the articular surface along the volar undersurface. Scaphoid is normal in appearance. No evidence of avascular necrosis. Normal scapholunate interval. Extensive soft tissue edema and fluid about the distal ulna and distal radial ulnar joint with small effusion. Evidence of ligamentous injury with high-grade tears involving the dorsal and volar radial ulnar ligaments. Evidence of peripheral TFCC tear involving the ulna styloid strut. Gadolinium extend s peripherally along lateral aspect of the distal ulna. Partial tear with edema extending along the u lnar collateral ligament. Central TFCC appears intact. No gadolinium within the DRUJ. Radial collateral ligament appears intact. Small amount of tenosynovitis involving the extensor carpi ulnaris. Tenosynovitis involving the extensor carpi radialis longus and brevis corresponding to the dorsal palpable marker. Normal carpal tunnel. MR/MR wrist LT wo/w con [id number] IMPRESSION: 1. Healing fracture involving distal radial metaphysis with persistent visuali zed fracture lines and edema. Callus formation is visualized. Fracture extends just to the articular surface along the volar undersurface. 2. Scaphoid is normal in appearance. No evidence for avascular necrosis. Marcy l scapholunate interval. 3. Extensive edema about the distal ulna and distal radial ulnar joint with sm all effusion. Ligamentous injury with high-grade tears involving the dorsal and volar radioulnar ligaments. 4. TFCC tear involving the ulna styloid strut. Gadolinium extends peripherally along the lateral aspect of the ulna. Partial tear of the Ulna collateral liga ment with undersurface edema. Central TFCC appears intact 5. Radial collateral ligament appears intact. 6. Small amount of tenosynovitis involving the extensor carpi ulnaris as well as the extensor carpi radialis longus and brevis.
--- NOTE | 2019-12-15 13:00 | IR_ITS ---
WS: [id number] WRIST ARTHROGRAM LEFT Fluoroscopic guided left wrist arthrogram CLINICAL INFORMATION: left distal radius fracture COMPARISON: None. PROCEDURE: The procedure including risks, benefits and complications were discussed with the patient, who agreed to proceed. Using sterile technique, the patient was prepped and draped in the usual ster ile fashion. After 1% lidocaine injection using fluoroscopic guidance, a 22-gauge spinal needle was a dvanced into the radiocarpal joint. Approximately 2.5cc of a solution containing 10 ml normal saline, 5 ml Omnipaque 240, 5 ml 1% lidocaine, and 0.1 ml gadolinium was administered. No immediate complica tions. FLUOROSCOPY TIME: 0.8 minutes. IR/[place] [id number] IMPRESSION: Uncomplicated fluoroscopic-guided left wrist arthrogram. MRI to follow.
[2019-12-15] MEDS: iohexol 240 mg/mL 50 mL Btl INTRA-ARTI (14:17)
== END 2019-12-15 12:23 | disposition home or self-care (01) ==
LOC: RADWPI 12:24
PROVIDERS: PCP Nurse Practitioner; Visit Provider Orthopaedic Surgery
DX: S52.502A Unspecified fracture of the lower end of left radius, initial encounter for closed fracture (principal); S63.502A Unspecified sprain of left wrist, initial encounter; X58.XXXA Exposure to other specified factors, initial encounter; M65.9 Synovitis and tenosynovitis, unspecified; R60.0 Localized edema; M25.432 Effusion, left wrist
CPT/HCPCS: 25246; 73223; 77002; Q9966

== ENCOUNTER → 2019-12-18 10:08 | Outpatient (BNVA) | payer SELFPAY | PROVIDERS: PCP Nurse Practitioner; Visit Provider Registered Nurse | DX: N94.9 Unspecified condition associated with female genital organs and menstrual cycle (principal) | CPT/HCPCS: 81000 ==

== ENCOUNTER → 2021-01-19 09:46 | Outpatient (BNVA) | payer OTHER, SELFPAY | PROVIDERS: PCP Registered Nurse; Visit Provider Registered Nurse | DX: Z20.822 Contact with and (suspected) exposure to COVID-19 (principal); Z11.52 Encounter for screening for COVID-19 | CPT/HCPCS: 87635 ==

== ENCOUNTER 2022-07-13 17:49 | Emergency (ER) | payer MEDICAID, SELFPAY ==
[2022-07-13 18:12] VITALS: BP 99/75; PULSE 89; RESP 15; TEMP 36.7; O2SAT 100
--- NOTE | 2022-07-13 18:41 | CTR_ITS ---
PROCEDURE INFORMATION: Exam: CT Abdomen And Pelvis With Contrast Exam date and time: 07/13/2022 7:34 PM Age: 37 years old Clinical indication: Abdominal pain; Generalized; Prior surgery; Surgery date: 6+ months; Surgery type: Hyst; Additional info: Abd pain TECHNIQUE: Imaging protocol: Computed tomography of the abdomen and pelvis with contrast. Radiation optimization: All CT scans at this facility use at least one of these dose optimization techniques: automated exposure control; mA and/or kV adjustment per patient size (includes targeted exams where dose is matched to clinical indication); or iterative reconstruction. Contrast material: OMNI 350; Contrast volume: 100 ml; Contrast route: INTRAVENOUS (IV); REPORTING DATA: Count of CT and Cardiac NM exams in prior 12 months: This patient has received 0 known CTs and 0 known cardiac nuclear medicine studies in the 12 months prior to the current study. COMPARISON: CT abdomen pelvis w con* [id number] 01/24/2019 2:34 PM RADIATION DOSE METRICS: Total DLP (mGy-cm): 669 FINDINGS: Liver: Normal. No mass. Gallbladder and bile ducts: Normal. No calcified stones. No ductal dilation. Pancreas: Normal. No ductal dilation. Spleen: Normal. No splenomegaly. Adrenal glands: There is a 1.6 cm right adrenal nodule. Left adrenal gland is unremarkable. Kidneys and ureters: Normal. No hydronephrosis. Stomach and bowel: Unremarkable. No obstruction. No mucosal thickening. Appendix: No evidence of appendicitis. Intraperitoneal space: Small volume free fluid in the pelvis, may be physiologic. No free air. No significant fluid collection. Vasculature: Unremarkable. No abdominal aortic aneurysm. Lymph nodes: Unremarkable. No enlarged lymph nodes. Urinary bladder: Unremarkable as visualized. Reproductive: Hysterectomy. Bones/joints: No acute fracture. Soft tissues: Unremarkable. CT/CT abdomen pelvis w con* [id number] IMPRESSION: No acute findings.
--- NOTE | 2022-07-13 18:46 | ED_ITS ---
HPI - Abdominal Pain General: Chief Complaint: Abdominal Pain Stated Complaint: abd pain Time Seen by Provider: 07/13/22 18:40 Source: patient Mode of arrival: ambulatory Limitations: no limitations History of Present Illness: 37-year-old female states she has had history of bowel obstructions in the past she had a hysterectomy and has scar tissue has had 2 in the past she states that she has had some abdominal pain over the last 2 days her pain is currently 5 out of 10 states she got concerned because she has had a bowel movement in 2 days had some nausea denies any vomiting denies any fever denies any worsening proving factors. Associated Symptoms: Reports nausea; Denies chills, diarrhea, dysuria, fever(s) and vomiting Review of Systems Const: Denies: fever(s), chills, body aches or change in appetite Eyes: Denies: blurry vision or eye discomfort ENMT: Denies: throat pain or dental pain Card: Denies: chest pain Resp: Denies: dyspnea GI: Reports: abdominal pain and nausea; Denies: vomiting or diarrhea : Denies: dysuria Musc: Denies: neck pain or back pain Skin/Breast: Denies: rash Neuro: Denies: headache(s) Psych: Denies: depression PFSH ED PFSH: Medical History Asthma Endometriosis Protein S deficiency Surgical History H/O: hysterectomy Hx of tonsillectomy Family History Unknown Cancer Social History Smoking and tobacco status: former smoker (04/2021) Alcohol intake: current Substance/Drug Use: never Adopted: No Caregiver/support person: No Lives independently: No service: No Current occupational status: employed Sexually active: Yes Do you think of yourself as: Straight/Heterosexual Current gender identity: Female Physical Exam Const: COMMON NORMALS: no acute distress, patient oriented x3 and healthy eder earing HENMT: COMMON NORMALS: hearing grossly normal bilaterally Eye: COMMON NORMALS: conjunctivae normal CONJUNCTIVA: Yes conjunctivae normal Neck/C-Spine: COMMON NORMALS: full ROM and supple Chest: COMMONS NORMALS: normal inspection of the chest and normal palpation of entire chest wall Resp: COMMON NORMALS: normal respiratory effort, No retractions, No use of accessory muscles and clear to auscultation bilaterally AUSCULTATION: clear to auscultation bilaterally Cardio: COMMON NORMALS: regular rate, regular rhythm and No murmurs present (Cardio) RATE: regular rate RHYTHM: regular rhythm GI: COMMON NORMALS: Normal to inspection, nondistended, normoactive bowel sounds present, Soft to palpation, non-tender and no masses PALPATION: Yes Soft to palpation Extremity: COMMON NORMALS: normal to inspection and full ROM Neuro: COMMON NORMALS: patient oriented x3, moves all extremities and no focal motor deficits Psych: COMMON NORMALS: mental status grossly normal, Normal thought process present and cooperative THOUGHT PROCESS: Normal thought process present Skin: COMMON NORMALS: no rashes or lesions noted and no wounds GENERAL SKIN EXAM: no rashes or lesions noted Course Vital Signs: Vital signs: Vital Signs Temperature 98.0 F 07/13/22 18:12 Pulse Rate 89 07/13/22 18:12 Respiratory Rate 15 07/13/22 18:12 Blood Pressure 99/75 07/13/22 18:12 Pulse Oximetry 100 07/13/22 18:12 Oxygen Delivery Me thod Room Air 07/13/22 18:12 MDM - Abdominal Pain Medical Decision Making Patient presents here with abdominal pain CT scan here is normal she had bowel sounds on exam her blood works normal no signs of obstruction she is stable for discharge we will prescribe her Bentyl and Zofran she is return if worsening. Medical Records I reviewed the patient's medical records. Lab Data I reviewed the patient's lab results. 07/13/22 19:22 07/13/22 19:22 Labs/Radiology: Radiology Impressions Abdomen/Pelvis CT 07/13/22 18:41 IMPRESSION: No acute findings. Laboratory Results WBC 5.4 10^3/uL (4.0-10.0) 07/13/22 19:22 RBC 4.28 10^6/uL (4.1-5.3) 07/13/22 19:22 Hgb 12.8 g/dL (11.5-15.3) 07/13/22 19: Hct 38.6 % (37.0-47.0) 07/13/22 19: MCV 90.2 fl (81-99) 07/13/22 19: MCH 29.9 pg (28.0-34.0) 07/13/22 19: MCHC 33.2 g/dL (30.0-36.0) 07/13/22 19: RDW 12.8 % (12.1-15.1) 07/13/22 19: Plt Count 221 10^3/cmm (130-400) 07/13/22 19: MPV 10.2 fL (7.4-10.4) 07/13/22 19: Neut % (Auto) 52.7 % 07/13/22 19: Lymph % (Auto) 35.9 % 07/13/22: [place] % (Auto) 8.4 % 07/13/22: Eos % (Auto) 2.4 % 07/13/22 19: Baso % (Auto) 0.2 % 07/13/22: Neut # (Auto) 2.84 10^3/uL (1.8-7.7) 07/13/22 19: Lymph # (Auto) 1.9 10^3/uL (0.8-4.8) 07/13/22: [place] # (Auto) 0.5 10^3/uL (0.2-0.9) 07/13/22: Eos # (Auto) 0.1 10^3/uL (0.0-0.8) 07/13/22 19: Baso # (Auto) 0.0 10^3/uL (0.0-0.1) 07/13/22: Nucleated RBC % (auto) 0 % 07/13/22: Nucleated RBCs # 0.0 /100WBC 07/13/22 19: Sodium 140 mmol/L (136-145) 07/13/22 19: Potassium 3.8 mmol/L (3.5-5.1) 07/13/22 19: Chloride 103 mmol/L (98-107) 07/13/22 19: Carbon Dioxide 24 mmol/L (22-29) 07/13/22 19: Anion Gap 16.8 (5-19) 07/13/22 19: BUN 14 mg/dL (6-20) 07/13/22 19: Creatinine 0.7 mg/dL (0.5-0.9) 07/13/22 19: GFR Calculation 93.6 mL/min (90-130) 07/13/22 19: Glucose 76 mg/dL (65-115) 07/13/22 19: Calculated Osmolality 289 mOsm/kg (285-295) 07/13/22 19: Calcium 9.0 mg/dL (8.5-10.5) 07/13/22 19: Total Bilirubin 0.3 mg/dL (0.15-1.2) 07/13/22 19: AST 17 U/L (0-32) 07/13/22: ALT 14 U/L (0-33) 07/13/22 19: Alkaline Phosphatase 60 U/L (35-105) 07/13/22 19:22 Total Protein 7.3 g/dL (6.6-8.7) 07/13/22 19: Albumin 4.6 g/dL (3.5-5.2) 07/13/22 19: Globulin 2.7 g/dL (1.3-4.6) 07/13/22 19: Lipase 21 U/L (13-60) 07/13/22 19:22 HCG, Qual Negative (Negative) 07/13/22 19: Urine Color Light yellow (Yellow) 07/13/22 18:51 Urine Appearance Clear (CLEAR) 07/13/22 18:51 Urine pH 6 (5-7) 07/13/22 18:51 Ur Specific [place] 1.010 (1.005-1.030) 07/13/22 18:51 Urine Protein Neg (Negative) 07/13/22 18:51 Urine Glucose (UA) Norm (Normal) 07/13/22 18:51 Urine Ketones Negative (Negative) 07/13/22 18:51 Urine Blood Neg (Negative) 07/13/22 18:51 Urine Nitrate Negative (Negative) 07/13/22 18:51 Urine Bilirubin Neg (Negative) 07/13/22 18:51 Urine Urobilinogen Norm mg/dL (Negative) 07/13/22 18:51 Ur Leukocyte Esterase Negative (Negative) 07/13/22 18:51 Discharge Plan Discharge Patient Disposition: Home Clinical Impression: Abdominal pain Condition: Stable Prescriptions: New ondansetron 4 mg tablet,disintegrating 4 mg PO Q6H PRN (Reason: nausea and vomiting) Qty: 14 0RF dicyclomine 20 mg tablet 20 mg PO TID PRN (Reason: abdominal pain) Qty: 20 0RF No Action Contrave 8-90 mg tablet extended release 2 tab PO BID 30 Days Qty: 120 2RF Rx Instructions: 340B albuterol sulfate [ProAir HFA] 90 mcg/actuation HFA aerosol inhaler See Rx Instructions .ROUTE .COMPLEX Qty: 8.5 0RF Dose Instruction: INHALE 2 PUFFS BY MOUTH EVERY 6 HOURS NEEDED FOR SHORTNESS OF BREATH OR WHEEZING Rx Instructions: INHALE 2 PUFFS BY MOUTH EVERY 6 HOURS NEEDED FOR SHORTNESS OF BREATH OR WHEEZING Discharge Orders: Discharge ED (Routine); Ordered 07/13/22 Ordered By: Naldo Cummings Referrals: Thelma Cruz FNP [Primary Care Provider] - 1-3 days Discharge Diet: Advance as tolerated Discharge Activity: Resume usual activity Patient Instructions: Abdominal Pain (ED), Opioid Safety Coding Level of Care Code ED Catering Associate for Frank Monteiro
[2022-07-13 19:05] LABS: Add Urine Microscopic? NO; Charge for UA Resulting for Rev
[2022-07-13 19:23] LABS: Bilirubin Urine Neg (Negative); Blood Urine Neg (Negative); Glucose Urine UA Norm (Normal); Ketones Urine Negative (Negative); Leukocyte Esterase Urine Negative (Negative); Nitrate Urine Negative (Negative); Protein Urine Neg (Negative); Urine Appearance Clear (CLEAR); Urine Color Light yellow (Yellow); Urobilinogen Urine Norm (Negative); pH Urine 6 (5-7)
[2022-07-13 19:28] LABS: Basophils % 0.2 %; Eosinophils # 0.1 10^3/uL (0.0-0.8); Eosinophils % 2.4 %; Hematocrit 38.6 % (37.0-47.0); Hemoglobin 12.8 g/dL (11.5-15.3); Lymphocytes # 1.9 10^3/uL (0.8-4.8); Lymphocytes % 35.9 %; Mean Corpuscular HGB Conc 33.2 g/dL (30.0-36.0); Mean Corpuscular Hemoglobin 29.9 pg (28.0-34.0); Mean Corpuscular Volume 90.2 fl (81-99); Mean Platelet Volume 10.2 fL (7.4-10.4); Monocytes # 0.5 10^3/uL (0.2-0.9); Monocytes % 8.4 %; Neutrophils # 2.84 10^3/uL (1.8-7.7); Neutrophils % 52.7 %; Nucleated Red Blood Cells % 0 %; Platelet Count 221 10^3/cmm (130-400); Red Blood Count 4.28 10^6/uL (4.1-5.3); Red Cell Distribution Width 12.8 % (12.1-15.1); White Blood Count 5.4 10^3/uL (4.0-10.0)
[2022-07-13] MEDS: sodium chloride 0.9% 1,000 ML 999 ML IV (19:31)
[2022-07-13] MEDS: morphine 4 mg/mL SDV 1 mL IVP (19:31)
[2022-07-13] MEDS: ondansetron 2 mg/ML SDV 2 mL 4 MG IVP (19:31)
[2022-07-13 19:45] LABS: HCG, Serum Qual Negative (Negative)
[2022-07-13 19:51] LABS: Alanine Aminotransferase 14 U/L (0-33); Albumin Level 4.6 g/dL (3.5-5.2); Alkaline Phosphatase 60 U/L (35-105); Anion Gap 16.8 (5-19); Aspartate Amino Transferase 17 U/L (0-32); Blood Urea Nitrogen 14 mg/dL (6-20); Carbon Dioxide 24 mmol/L (22-29); Chloride 103 mmol/L (98-107); Globulin 2.7 g/dL (1.3-4.6); Glomerular Filtration Rate 93.6 mL/min (90-130); Glucose 76 mg/dL (65-115); Lipase 21 U/L (13-60); Osmolality Calculated 289 mOsm/kg (285-295); Potassium 3.8 mmol/L (3.5-5.1); Sodium 140 mmol/L (136-145); Total Bilirubin 0.3 mg/dL (0.15-1.2); Total Protein 7.3 g/dL (6.6-8.7)
[2022-07-13 20:38] VITALS: BP 105/70; PULSE 76; O2SAT 98
== END 2022-07-13 20:39 | disposition home or self-care (01) ==
PROVIDERS: Emergency Provider Emergency Medicine; PCP Registered Nurse
DX: R10.9 Unspecified abdominal pain (principal); R11.0 Nausea; Z87.891 Personal history of nicotine dependence
CPT/HCPCS: 74177; 80053; 81003; 83690; 84703; 85025; 96361; 96374; 96375; 99285; J2270; J2405; J7030; Q9967